=== PATIENT | female | born 1985 | race Hispanic/Latino ===

== ENCOUNTER 2019-08-10 01:23 | Inpatient (IN) | payer MEDICAID, SELFPAY ==
[2019-08-10 01:52] VITALS: BMI 28.3
--- NOTE | 2019-08-10 02:52 | PDOC.FPROB ---
FMR OB H&P: HPI - History of Present Illness Chief Complaint: contractions History of Present Illness: 33 yo @~39wks presents with contractions since yesterday morning. They are now painful and every 3-5 minutes. She recently moved here from [facility]. She plans to deliver here but has not established with a doctor here yet. Endorses movement. Denies LOF. Endorses vaginal discharge that she has had throughout . Denies vaginal bleeding. FMR OB H&P: Current - Care : 4 Para: 3 FMR OB H&P: History - Past Medical History PMH: denies - OB History OB History: three prior term vaginal deliveries - Surgical History Sx History: denies - Social History Social History: denies smoking, alcohol, drug use - Family History Family History: denies htn, diabetes FMR OB H&P: Medications - Current Allergies/Adverse Reactions: Allergies Allergy/AdvReac Type Severity Reaction Status Date / Time No Known Allergies Allergy Verified 08/10/19 01:52 FMR OB H&P: ROS - Review of Systems General: denies: fever/chills, weight/appetite/sleep changes ENT: denies: nasal congestion, rhinorrhea Cardiovascular: denies: chest pain, palpitation Gastrointestinal: reports: abdominal pain, cramping. denies: nausea, vomiting Genitourinary (Female): reports: vaginal discharge. denies: dysuria, hematuria , polyuria, vaginal bleeding Musculoskeletal: denies: pain, stiffness Neurologic: denies: numbness, syncope Integumentary: denies: itching, rash FMR OB H&P: Vital Signs - Maternal Vital signs: BP: 117/79 - Heart Tones Baseline: 150 Variability: moderate Category: category 1 FMR OB H&P: Physical Exam - Physical Exam General: NAD, awake, alert and oriented HEENT: normocephalic and atraumatic Heart: RRR, normal S1/S2, no murmurs/rubs/gallops General: CTAB, no respiratory distress Abdomen: gravid Skin: no rash, good tugor, capillary refill <2 seconds Lymphatic: no unusual bruising or bleeding, no purpura Psychiatric: intact recent and remote memory FMR OB H&P: A/P - Problem List (1) Third trimester Current Visit: Yes Status: Acute Code(s): Z34.93 - ENCNTR FOR SUPRVSN OF NORMAL PREG, UNSP, THIRD TRIMESTER (2) History of inadequate care Current Visit: Yes Status: Acute Code(s): O09.30 - SUPRVSN OF PREG W INSUFFICIENT ANTENAT CARE, UNSP TRIMESTER Discussion: Date/Time: 08/10/19251 33 yo @ ~39wks presents with contractions- 1.)sIUP-inadequate care, see below 2.)contractions-r/o labor, NST monitoring, recheck cervix for change in two hours 3.)Inadequate care-moved from [facility] and has not established with a provider here. Ordered OB lab panel as pt states she plans to deliver here. This H&P was discussed with Dr. Ruffin who agrees with the above documentation and plan.
[2019-08-10] MEDS ORDERED: hydrALAZINE 20 MG/ML VIAL SLOW IVP PRN ×3 (02:53→18:01)
[2019-08-10 04:09] LABS: Mean Corpuscular HGB CONC 34.8 g/dL (32.0-36.0); Mean Corpuscular Hemoglobin 27.4 pg (27.0-31.0); Mean Corpuscular Volume 78.7 fL (78.0-98.0); Mean Platelet Volume 9.3 fL (7.4-10.4); Platelet Count 191 thou/uL (130-400); RBC Distribution Width 15.1 % (11.5-14.5); Red Blood Cell (RBC) Count 3.64 mill/uL (4.20-5.40); White Blood Cell (WBC) Count 8.8 thou/uL (4.8-10.8)
--- NOTE | 2019-08-10 04:44 | PDOC.EVN ---
Event Note - Event Note Event Note: Pt made some small change regarding effacement. Labs pending. Will recheck in 2 more hours. Pt is a mulitp without a provider here in town. If she makes additional change, will consider admitting for labor and augmenting if indicated.
[2019-08-10 04:47] LABS: Syphilis Antibody Nonreactive (Nonreactive); Syphilis Antibody Index 0.03 S/CO (<1.00 Non-Reactive)
[2019-08-10 04:48] LABS: Amphetamine Not Detected (NotDetected); Barbiturates Screen Not Detected (NotDetected); Benzodiazepine Screen Not Detected (NotDetected); Cocaine Metabolite Screen Not Detected (NotDetected); Medtox Control Line Valid? VALID (VALID); Medtox Reader # READER 1; Methadone Not Detected (NotDetected); Methamphetamine Not Detected (NotDetected); Opiate Screen Not Detected (NotDetected); Oxycodone Screen Not Detected (NotDetected); Phencyclidine (PCP) Not Detected (NotDetected); THC/Cannabinoid Screen Not Detected (NotDetected); Tricyclic Screen Not Detected (NotDetected)
[2019-08-10 04:48] LABS: HBSAg Index 0.12 S/CO (0-0.99); HIV (1/2) Antibody/Antigen Non-Reactive (NonReactive); HIV 1/2 INDEX 0.15 S/CO (<1.00); Hep B Surf Ag Non-Reactive S/CO (NonReactive)
[2019-08-10] MEDS ORDERED: Butorphanol Tartrate 1 MG/ML VIAL SLOW IVP PRN (07:48)
[2019-08-10] MEDS ORDERED: Misoprostol 200 MCG TAB PR PRN (07:48)
[2019-08-10] MEDS ORDERED: Acetaminophen 500 MG TAB PO PRN (07:48)
[2019-08-10] MEDS ORDERED: Ondansetron PF 4 MG/2 ML Vial IVP PRN ×2 (07:48→11:58)
[2019-08-10] MEDS ORDERED: Promethazine HCl 25 MG/ML VIAL IM PRN ×2 (07:48→11:58)
[2019-08-10] MEDS ORDERED: Ibuprofen 800 MG TAB PO PRN (07:48)
[2019-08-10] MEDS ORDERED: Lidocaine 1% (PF) 30 ML VIAL SC PRN (07:48)
[2019-08-10] MEDS ORDERED: Methylergonovine 0.2 MG/ML VIAL IM PRN (07:48)
[2019-08-10] MEDS ORDERED: HYDROcodone/Acetaminophen 5/325 mg Tablet PO PRN ×2 (07:48)
[2019-08-10] MEDS ORDERED: Carboprost 250 MCG/ML AMP IM PRN (07:48)
[2019-08-10] MEDS ORDERED: Diphenoxylate HCl/Atropine Tablet PO PRN ×2 (07:48)
--- NOTE | 2019-08-10 07:53 | PDOC.BPN ---
- Brief Progress Note Patient continues to have painful ctx q 3 mins. SVE now 3.5//-2 (changed from /-2). Will admit for labor. Patient denies ever having had antibiotics in previous pregnancies, will presume no hx GBS.
--- NOTE | 2019-08-10 07:57 | ULT ---
EXAM: OB ultrasound COMPARISON: None HISTORY: female. Evaluate gestational age. TECHNIQUE: Multiplanar grayscale and color Doppler images were obtained in a transabdominal ult rasound. FINDINGS: There is a single live intrauterine with heart rate of 140 bpm. Estimated weight is 3695 g. Average age of the fetus based off today's examination is 38 weeks 3 days. BPD 9.10 cm -- 36 weeks 6 days HC 33.34 cm -- 38 weeks 1 day AC 36.35 cm -- 40 weeks 2 days FL 7.47 cm -- 38 weeks 1 day The placenta is anterior in location without focal abnormality. ADRIEN is 13.3 cm which is normal. The cervix is normal in length. There is no evidence of placenta previa. IMPRESSION: Single live intrauterine with estimated age of 38 weeks 3 days.
[2019-08-10 08:05] LABS: Hemoglobin 9.9 g/dL (12.0-16.0); Mean Corpuscular HGB CONC 33.7 g/dL (32.0-36.0); Mean Corpuscular Volume 80.1 fL (78.0-98.0); Mean Platelet Volume 9.1 fL (7.4-10.4); Platelet Count 179 thou/uL (130-400); Red Blood Cell (RBC) Count 3.66 mill/uL (4.20-5.40); White Blood Cell (WBC) Count 8.2 thou/uL (4.8-10.8)
[2019-08-10 08:47] LABS: HBSAg Index 0.18 S/CO (0-0.99); Hep B Surf Ag Non-Reactive S/CO (NonReactive); Syphilis Antibody Nonreactive (Nonreactive); Syphilis Antibody Index 0.04 S/CO (<1.00 Non-Reactive)
[2019-08-10] MEDS: Lactated Ringer's 1,000 ML IV SCH ×2 (09:00→11:06)
--- NOTE | 2019-08-10 09:12 | PDOC.EVN ---
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
[2019-08-10] MEDS ORDERED: Fentanyl 4 mcg/Bup 0.1% Cadd 100 ML ONE (10:00)
--- NOTE | 2019-08-10 10:49 | PDOC.EVN ---
Event Note - Event Note Event Note: CAROLS in use now CX still 4cm per RN I will start pitcoin for augmentation; AROM if needed (after 6cm)
[2019-08-10] MEDS ORDERED: ePHEDrine/0.9% NaCl/PF SYRINGE 50 mg/10 ml SLOW IVP PRN (11:58)
[2019-08-10] MEDS ORDERED: Naloxone HCl 0.4 mg/ml Vial IVP PRN ×2 (11:58)
[2019-08-10] MEDS ORDERED: Acetaminophen 325 MG TAB PO PRN (11:58)
[2019-08-10] MEDS ORDERED: diphenhydrAMINE 50 MG/ML VIAL IVP PRN (11:58)
[2019-08-10] MEDS ORDERED: Lactated Ringer's 500 ML IV PRN (11:58)
[2019-08-10] MEDS ORDERED: Fentanyl 4 mcg/Bupivacaine 0.1% Cassette 100 ML EPIDURAL SCH (12:00)
[2019-08-10] MEDS ORDERED: Communication Order-Pharmacy FS PRN (12:00)
[2019-08-10] MEDS: NS w/ Oxytocin 10 units 500 ML IV SCH (12:00)
--- NOTE | 2019-08-10 15:55 | PDOC.OPDEL ---
OB Operative/Delivery Note Delivery Dr/Surgeon: Reinier Assist: None Pre-Delivery Diagnosis: active labor, other (Pitocin augmented) Procedure/Post Delivery Dx: spontaneous vaginal delivery Weeks gestation: 39 Anesthesia: epidural - Findings A - 1 min: 9 - 5 min: 9 - Additional Findings/Plan Placenta delivered: spontaneous (Baby born at 1545; placenta delieverd at 1548 ( [place]); 3vc...mec stained placenta) Repaired Obstetrical Laceration: 1st degree (repaired with 2-0 chromic (midline) ) Estimated blood loss: 150 Compilations/Other Findings: no NC Baby was vigorous with terminal mec noted at delivery; but also noted mec stained membranes. Cord gas npot collected as baby was vigorous. Counts correct. Post delivery plan: recovery in LICU
[2019-08-10] MEDS ORDERED: Acetaminophen/Codeine 30-300mg Tablet PO PRN ×2 (18:01)
[2019-08-10] MEDS ORDERED: Lanolin Ointment 7 GM TUBE TOP PRN (18:01)
[2019-08-10] MEDS ORDERED: Milk Of Magnesia 30 ML UDCUP PO PRN (18:01)
[2019-08-10] MEDS ORDERED: Preparation H Ointment 28 GM TUBE PR PRN (18:01)
[2019-08-10] MEDS ORDERED: Benzocaine-Menthol 82.5 ML CAN TOP PRN (18:01)
[2019-08-10] MEDS ORDERED: Bisacodyl 10 MG SUPP PR PRN (18:01)
[2019-08-10] MEDS: NS / Oxytocin 40 units/1000ml 1,000 ML IV PRN ×2 (18:03→18:05)
[2019-08-10] MEDS ORDERED: NS / Oxytocin 40 units/1000ml 1,000 ML IV SCH (18:15)
[2019-08-10] MEDS: Docusate Calcium (SURFAK) 240 MG CAP PO SCH (21:58)
[2019-08-11] MEDS: Ibuprofen 800 MG TAB PO SCH ×3 (03:19→14:15)
[2019-08-11] MEDS: Lactated Ringer's 1,000 ML IV SCH ×3 (03:21→16:05)
--- NOTE | 2019-08-11 06:26 | PDOC.PP ---
Post Progress Note Post Day #: 1 Subjective: Doing well PO intake tolerated: yes Flatus: yes Ambulation: yes Vital Signs (12 hours) Temp Pulse Resp BP Pulse Ox 08/11/19 04:33 98.4 F 68 16 92/59 L 08/10/19 23:55 98.5 F 79 18 96/51 L 08/10/19 20:00 98.9 F 79 18 100/55 L 97 08/10/19 18:30 98.1 F 80 18 100 Weight Weight 145 lb - Physical Examination General: NAD Abdominal: lochia, no distention, appropriately TTP Extremities: negative homans (B) Neurological: no gross focal deficits Psychiatric: A&Ox3, normal affect Result Diagrams: 08/10/19 07:57 Additional Labs: Post Labs Blood Type A POSITIVE 08/10/19 05:00 Hep Bs Antigen Non-Reactive S/CO (NonReactive) 08/10/19 07:57 (1) Vaginal delivery Code(s): O80 - ENCOUNTER FOR FULL-TERM UNCOMPLICATED DELIVERY Status: Acute - Assessment/Plan PPD1 this PM...doing well. OK for routine care until 1600 today and then DC as multigravida and doing well. She will follow up in 4-6 weeks
[2019-08-11] MEDS ORDERED: Ferrous Sulfate 325 MG TAB PO SCH (08:00)
[2019-08-11] MEDS: Docusate Calcium (SURFAK) 240 MG CAP PO SCH (08:22)
[2019-08-11] MEDS ORDERED: Prenatal Vitamin 1 TAB PO SCH (09:00)
[2019-08-11] MEDS ORDERED: Adacel (T-DAP) 0.5 ML SYRINGE IM ONE (09:00)
[2019-08-11] MEDS ORDERED: Measles/Mumps/Rubella 10 MCG/0.5 ML VIAL SC ONE (09:00)
[2019-08-11] MEDS ORDERED: Varicella virus, LIVE 0.5 ML VIAL SC ONE (09:00)
[2019-08-11 11:51] VITALS: BP 96/51; TEMP 97.9
[2019-08-11] MEDS: NS w/ Oxytocin 10 units 500 ML IV SCH (13:15)
== END 2019-08-11 18:05 | disposition home or self-care (01) | DRG 807 ==
LOC: L&D/OP 01:23 → L&D 08:38 → 3SW 18:37
PROVIDERS: ADMIT Obstetrics & Gynecology; ATTEND Obstetrics & Gynecology
PROC: 10E0XZZ Delivery of Products of Conception, External Approach (ICD-10-PCS; principal; 2019-08-10)
PROC: 0HQ9XZZ Repair Perineum Skin, External Approach (ICD-10-PCS; 2019-08-10)
DX: O77.0 Labor and delivery complicated by meconium in amniotic fluid (principal); Z37.0 Single live birth; Z3A.39 39 weeks gestation of pregnancy; O70.0 First degree perineal laceration during delivery
CPT/HCPCS: 36415; 51702; 76815; 80306; 85027; 86762; 86780; 86850; 86900; 86901; 87086; 87340; 87389; 99285; J2590